=== PATIENT | female | born 1985 | race African-American/Black ===

== ENCOUNTER 2019-11-02 13:48 | Emergency (ER) | payer OTHER, SELFPAY ==
[2019-11-02 14:24] VITALS: BP 104/45; PULSE 68; RESP 14; TEMP 37; O2SAT 100; BMI 19.7
--- NOTE | 2019-11-02 14:31 | HMH.EDUTC ---
[place] Disposition Clinical Impression: COVID-19 virus IgG antibody test result unknown Disposition: Home, Self-Care Condition on Discharge: Good Instructions: Preventing the Spread of Coronavirus Discharge Instructions Additional Instructions: self quarantine until result is known Referrals: PCP,No [Primary Care Provider] - Time of Disposition: 14:37 Medical Decision Making - [place] Inquiry Pt receiving controlled substance: No Vital Signs: 11/02/19 14:24 Temperature 98.6 F Temperature Source Oral Pulse Rate [Radial] 68 Respiratory Rate 14 Blood Pressure [Right Arm] 104/45 L Blood Pressure Mean [Right Arm] 64 Blood Pressure Source [Right Arm] Automatic Cuff Blood Pressure Position [Right Arm] Sitting 02 Sat by Pulse Oximetry 100 Oxygen Delivery Method Room Air Orders (Tests/Meds): ORDERS Category Date Time Status Coronavirus 19 Swab (OUTPT) Routine Lab 11/02/19 14:14 Received [place] HPI - General Chief complaint: Urgent [facility] Stated complaint: Covid test Time Seen by Provider: 11/02/19 14:32 Mode of Arrival: Ambulatory Source of Information: Patient Limitations: No Limitations Description of Symptoms (Recalled from Triage Doc. by RN): exposure to covid HEENT Symptoms (Recalled from RN notes): No Resp Symptoms (Recalled from RN notes): No Skin Symptoms (Recalled from RN notes): No MS Symptoms (Recalled from RN notes): No Functional Status (Recalled from RN notes): wnl - History of Present Illness Provider Complaint: 34 yr old female presnets for covid testing. pt states she was exposed from a co worker. pt states she was riding in a car and ate lunch with him. pt states no symptoms. - Related Data Allergies Allergy/AdvReac Type Severity Reaction Status Date / Time No Known Allergies Allergy Verified 11/02/19 14:27 - Worker's Comp Is this a Worker's Comp case?: No [facility] History - Hepatitis A Screen Drug use history?: No High risk sexual behaviors?: No History of sexually transmitted infection?: No Currently employed?: No Childcare worker?: No Do you have indoor plumbing?: Yes Do you have electricity?: Yes Attestation statement:: This patient has been screened for Hepatitis A risk factors. I have reviewed the patient's past medical history: Yes - Social History Alcohol Intake: never Occupational Status: employed ROS Obtained: Yes Systems reviewed as appropriate & no additional complaints - Constitutional Constitutional: Reports system reviewed and no additional complaints, except as docu, Denies chills, Denies fever(s) - Eyes Eyes: Reports system reviewed and no additional complaints, except as docu, Denies blurry vision - ENT Ears, Nose, Mouth, and Throat: Reports system reviewed and no additional complaints, except as docu, Denies nasal congestion, Denies post nasal drip, Denies sore throat - Cardiovascular Cardiovascular: Reports system reviewed and no additional complaints, except as docu, Denies leg edema - Respiratory Respiratory: Yes system reviewed and no additional complaints, except as docu, No change in phlegm color - Gastrointestinal Gastrointestingal: Reports: system reviewed and no additional complaints, except as docu. Denies: nausea, vomiting - Genitourinary Female Genitourinary: Reports system reviewed and no additional complaints, except as docu, Denies abnormal vaginal bleeding - Musculoskeletal Musculoskeletal: Reports system reviewed and no additional complaints, except as docu, Denies decreased muscle mass - Integumentary/Breasts Skin/Breast: Reports system reviewed and no additional complaints, except as docu, Denies rash - Neurologic Neurologic: Reports system reviewed and no additional complaints, except as docu, Denies dizziness - Endocrine Endocrine: Reports system reviewed and no additional complaints, except as docu, Denies increase in ring/shoe/hat size - Hematologic/Lymphatic Henatologic/Lymphatic: Report
[2019-11-02 15:19] VITALS: BP 104/45; PULSE 68; RESP 14; TEMP 37; O2SAT 100
--- NOTE | 2019-11-02 19:19 | PC.NURSE ---
Patient called regarding covid test results, negative result verified over phone.
== END 2019-11-02 14:37 | disposition home or self-care (01) ==
PROVIDERS: Emergency Provider Nurse Practitioner Family
DX: Z20.828 Contact with and (suspected) exposure to other viral communicable diseases (principal)
CPT/HCPCS: 99201; U0003

== ENCOUNTER → 2019-11-04 13:19 | Outpatient (CLI) | payer OTHER, SELFPAY | PROVIDERS: Visit Provider Nurse Practitioner Family | DX: Z03.818 Encounter for observation for suspected exposure to other biological agents ruled out (principal) | CPT/HCPCS: U0003 ==